=== PATIENT | female | born 1960 | race Caucasian/White ===

== ENCOUNTER 2021-07-08 08:11 | Day surgery (SDC) | payer OTHER ==
[~2021-07-08] VITALS: Ht 147.3 cm; Wt 72.6 kg
[~2021-07-08 08:11] MED LIST: ACET-9645 PO
[2021-07-08] MEDS ORDERED: LIDOCAINE 2% 100 MG/5 ML UJET TP ONE (10:33)
[2021-07-08] MEDS ORDERED: fentaNYL citrate 0.05 MG/ML VIAL ONE (10:33)
[2021-07-08] MEDS ORDERED: MIDAZOLAM 5 MG/5 ML VIAL ONE (10:42)
[2021-07-08] MEDS ORDERED: MIDAZOLAM 2 MG/2 ML VIAL IVP ONE ×2 (11:00→11:05)
== END 2021-07-08 11:46 | disposition home or self-care (01) ==
LOC: MFCC 08:11 → MDS 08:11
PROVIDERS: ATTEND Internal Medicine Gastroenterology
DX: R10.13 Epigastric pain (principal); K20.90 Esophagitis, unspecified without bleeding; K29.70 Gastritis, unspecified, without bleeding; Z90.710 Acquired absence of both cervix and uterus; Z79.899 Other long term (current) drug therapy
CPT/HCPCS: 36415; 43239; 86677; J2250; J7030; J3010